=== PATIENT | female | born 1955 | race Two or more races ===

== ENCOUNTER 2019-04-18 10:29 | Outpatient (CLI) | payer OTHER | END 2019-04-18 12:43 | disposition home or self-care (01) | LOC: SONOGRAMA 10:29 | DX: E04.2 Nontoxic multinodular goiter (principal) ==

== ENCOUNTER 2021-07-12 08:38 | Outpatient (CLI) | payer OTHER | END 2021-07-12 08:41 | disposition home or self-care (01) | LOC: SONOGRAMA 08:38 | PROVIDERS: ATTEND Pathology Anatomic Pathology & Clinical Pathology | DX: E04.2 Nontoxic multinodular goiter (principal) ==